=== PATIENT | female | born 1975 | race Hispanic/Latino ===

== ENCOUNTER 2019-07-04 11:54 | Emergency (ER) | payer SELFPAY ==
[2019-07-04 13:01] LABS: #Basophils 0.1 thou/uL (0.0-0.2); #Eosinphils 0.2 thou/uL (0.0-0.7); #Lymphocytes 2.2 thou/uL (1.20-3.40); #Monocytes 0.4 thou/uL (0.11-0.59); %Basophils 0.9 % (0.0-1.0); %Eosinophils 2.2 % (0.0-10.0); %Lymphocytes 27.8 % (21.0-51.0); %Monocytes 4.9 % (0.0-10.0); %Neutrophils 64.1 % (42.0-75.0); Hemoglobin 14.3 g/dL (12.0-16.0); Mean Corpuscular HGB CONC 35.6 g/dL (32.0-36.0); Mean Corpuscular Hemoglobin 31.3 pg (27.0-31.0); Mean Corpuscular Volume 87.8 fL (78.0-98.0); Mean Platelet Volume 7.4 fL (7.4-10.4); Platelet Count 246 thou/uL (130-400); RBC Distribution Width 11.9 % (11.5-14.5); Red Blood Cell (RBC) Count 4.59 mill/uL (4.20-5.40); White Blood Cell (WBC) Count 7.8 thou/uL (4.8-10.8)
[2019-07-04 13:06] LABS: BHCG - Serum Negative (NEGATIVE); Pregs Control Background? CLEAR/WHITE (CLR/WHITE); Pregs Control Bar Appear? YES (CONTROL BAR)
[2019-07-04] MEDS ORDERED: Morphine 4 MG/ML VIAL ONE (13:20)
[2019-07-04] MEDS ORDERED: Ondansetron PF 4 MG/2 ML Vial ONE (13:20)
[2019-07-04 13:25] LABS: ALT (SGPT) 12 U/L (8-55); AST (SGOT) 13 U/L (5-34); Albumin 4.7 g/dL (3.5-5.0); Alkaline Phosphatase 51 U/L (40-150); Anion Gap 12 mmol/L (10-20); BUN (Urea Nitrogen) 12 mg/dL (7.0-18.7); Bilirubin, Total 0.6 mg/dL (0.2-1.2); Calc. Creatinine Clearance 0 mL/min (70-130); Calcium 9.2 mg/dL (7.8-10.44); Carbon Dioxide 24 mmol/L (22-29); Chloride 105 mmol/L (98-107); Estimated GFR-MDRD 89; Globulin 3.2 g/dL (2.4-3.5); Glucose 97 mg/dL (70-105); Lipase 13 U/L (8-78); Potassium 3.3 mmol/L (3.5-5.1); Protein, Total 7.9 g/dL (6.0-8.3); Sodium 138 mmol/L (136-145)
[2019-07-04 15:09] LABS: Bilirubin Negative (Negative); Blood, Urine Negative (Negative); Clarity Clear (Clear); Glucose, Urine (Dipstick) Normal (Negative); Leukocyte Negative Leu/uL (Negative); Nitrite Negative (Negative); Protein, Urine (Dipstick) Negative (Neg-Trace); Urobilinogen Normal mg/dL (Less than 2)
--- NOTE | 2019-07-04 15:15 | ULT ---
Gallbladder ultrasound: Multiple grayscale images of right upper quadrant obtained according to protocol. INDICATION: Pain FINDINGS: Liver: Normal Gallbladder: There are multiple foci of increased echogenicity of the gallbladder, oriented along the gallbladder wall, which is thickened, measuring slightly greater than 4 mm. Melchor's Sign: Negative Common bile duct is normal. Ascites: None IMPRESSION: Gallbladder wall thickening and multiple peripherally oriented foci of increased echogenicity the gal lbladder lumen. This may be on the basis of adenomyomatosis. Superimposed gallbladder polyp formation, measuring up to 7 mm, may also be present. Recommend follow-up with gastroenterology consultation for further evaluation.
== END 2019-07-04 16:10 | disposition home or self-care (01) ==
LOC: ERS 11:54
DX: K82.4 Cholesterolosis of gallbladder (principal)
CPT/HCPCS: 76705; 80053; 81003; 83690; 84703; 85025; 96361; 96374; 96375; J2270; J2405

== ENCOUNTER 2019-11-28 12:57 | Emergency (ER) | payer SELFPAY ==
[2019-11-28 14:18] LABS: #Basophils 0.1 thou/uL (0.0-0.2); #Eosinphils 0.2 thou/uL (0.0-0.7); #Lymphocytes 1.9 thou/uL (1.20-3.40); #Monocytes 0.4 thou/uL (0.11-0.59); #Neutrophils 5.1 thou/uL (1.40-6.50); %Basophils 0.7 % (0.0-1.0); %Eosinophils 2.4 % (0.0-10.0); %Lymphocytes 25.2 % (21.0-51.0); %Monocytes 5.1 % (0.0-10.0); %Neutrophils 66.6 % (42.0-75.0); Hemoglobin 14.1 g/dL (12.0-16.0); Mean Corpuscular Hemoglobin 31.9 pg (27.0-31.0); Mean Corpuscular Volume 88.5 fL (78.0-98.0); Platelet Count 228 thou/uL (130-400); Red Blood Cell (RBC) Count 4.43 mill/uL (4.20-5.40); White Blood Cell (WBC) Count 7.6 thou/uL (4.8-10.8)
[2019-11-28 16:14] LABS: Bacteria/HPF None Seen HPF (None Seen); Bilirubin Negative (Negative); Blood, Urine Negative (Negative); Clarity Clear (Clear); Glucose, Urine (Dipstick) Normal (Negative); Leukocyte Negative Leu/uL (Negative); Nitrite Negative (Negative); Protein, Urine (Dipstick) 30 mg/dL (Neg-Trace); RBC/HPF 0-3 HPF (0-3); Squamous Epithelial 0-3 HPF (0-3); WBC/HPF None Seen HPF (0-3)
== END 2019-11-28 15:57 | disposition left against medical advice (07) ==
LOC: ERS 12:57
DX: Z53.21 Procedure and treatment not carried out due to patient leaving prior to being seen by health care provider (principal)
CPT/HCPCS: 36415; 81003; 81015; 85025

== ENCOUNTER 2019-12-04 12:13 | Emergency (ER) | payer SELFPAY ==
[2019-12-04 13:46] LABS: #Eosinphils 0.2 thou/uL (0.0-0.7); #Lymphocytes 1.9 thou/uL (1.20-3.40); #Monocytes 0.4 thou/uL (0.11-0.59); #Neutrophils 3.9 thou/uL (1.40-6.50); %Basophils 0.6 % (0.0-1.0); %Eosinophils 2.6 % (0.0-10.0); %Lymphocytes 29.7 % (21.0-51.0); %Monocytes 5.6 % (0.0-10.0); %Neutrophils 61.5 % (42.0-75.0); Hemoglobin 13.9 g/dL (12.0-16.0); Mean Corpuscular Hemoglobin 31.4 pg (27.0-31.0); Mean Corpuscular Volume 89.6 fL (78.0-98.0); Mean Platelet Volume 7.6 fL (7.4-10.4); Platelet Count 256 thou/uL (130-400); Red Blood Cell (RBC) Count 4.44 mill/uL (4.20-5.40); White Blood Cell (WBC) Count 6.4 thou/uL (4.8-10.8)
[2019-12-04 14:09] LABS: ALT (SGPT) 11 U/L (8-55); AST (SGOT) 10 U/L (5-34); Albumin 4.2 g/dL (3.5-5.0); Alkaline Phosphatase 46 U/L (40-110); Anion Gap 10 mmol/L (10-20); BUN (Urea Nitrogen) 10 mg/dL (7.0-18.7); Bilirubin, Total 0.5 mg/dL (0.2-1.2); Calc. Creatinine Clearance 0 mL/min (70-130); Calcium 8.8 mg/dL (7.8-10.44); Carbon Dioxide 26 mmol/L (22-29); Chloride 107 mmol/L (98-107); Estimated GFR-MDRD 89; Globulin 3.1 g/dL (2.4-3.5); Glucose 94 mg/dL (70-105); Lipase 16 U/L (8-78); Potassium 3.6 mmol/L (3.5-5.1); Protein, Total 7.3 g/dL (6.0-8.3); Sodium 139 mmol/L (136-145)
--- NOTE | 2019-12-04 14:54 | RAD ---
EXAM: CHEST ONE VIEW HISTORY: Right lower quadrant abdominal pain with diarrhea and vomiting. COMPARISON: None FINDINGS: The cardiac silhouette and pulmonary vasculature is within normal limits. Mild elevation left hemidia phragm. The lungs are clear. The osseous structures are intact. IMPRESSION: No acute cardiopulmonary process.
[2019-12-04] MEDS ORDERED: Pantoprazole 40 MG VIAL ONE (15:04)
[2019-12-04] MEDS ORDERED: Ondansetron PF 4 MG/2 ML Vial ONE (15:04)
[2019-12-04 15:16] LABS: Bacteria/HPF None Seen HPF (None Seen); Bilirubin Negative (Negative); Blood, Urine Negative (Negative); Clarity Clear (Clear); Glucose, Urine (Dipstick) Normal (Negative); Leukocyte 25 Leu/uL (Negative); Nitrite Negative (Negative); Protein, Urine (Dipstick) Negative (Neg-Trace); RBC/HPF 0-3 HPF (0-3); Squamous Epithelial 0-3 HPF (0-3); Urobilinogen Normal mg/dL (Less than 2); WBC/HPF 0-3 HPF (0-3)
--- NOTE | 2019-12-04 15:33 | ULT ---
Exam: Right upper quadrant ultrasound: HISTORY: Abdominal pain, nausea, vomiting COMPARISON: 07/04/2019 FINDINGS: Visualized liver:Somewhat coarse liver echogenicity evidence for fatty change. Gallbladder:Evidence for gallbladder wall thickening with extensive polyps throughout the gallbladder evidence for gallbladder wall polyposis. There is some associated gallbladder wall thickening up to 0.5 cm. Common bile duct:0.7 cm The visualized pancreas and right kidney are unremarkable. No evidence for abscess or abnormal fluid collection in the right upper quadrant. IMPRESSION: Gallbladder wall thickening with very extensive nonmobile polyps throughout the gallbladder. No evidence for mobile shadowing gallstones. Coarse liver echogenicity evidence for fatty change.
== END 2019-12-04 17:50 | disposition home or self-care (01) ==
LOC: ERS 12:13
DX: K82.4 Cholesterolosis of gallbladder (principal)
CPT/HCPCS: 36415; 71045; 76705; 80053; 81003; 81015; 83690; 84484; 85025; 93005; 96361; 96374; 96375; C9113; J2405

== ENCOUNTER 2020-01-26 13:04 | Day surgery (SDC) | payer SELFPAY ==
[~2020-01-26 13:04] MED LIST: Dexamethasone 20 MG/5 ML VIAL ONE; Glycopyrrolate 0.2 MG/ML 5 ML SYRINGE ONE; Iopamidol 370 76% 100 ML VIAL ONE; Ondansetron PF 4 MG/2 ML Vial ONE; PROPOFOL 200 MG/20 ML VIAL ONE; Rocuronium Bromide 10 MG/ML (10ML VIAL) ONE; Succinylcholine Chloride 20 MG/ML 10 ml SYRINGE FS ONE; diphenhydrAMINE 50 MG/ML VIAL ONE
[2020-01-26 13:35] LABS: #Lymphocytes 1.9 thou/uL (1.20-3.40); #Monocytes 0.3 thou/uL (0.11-0.59); #Neutrophils 5.9 thou/uL (1.40-6.50); %Eosinophils 0.4 % (0.0-10.0); %Lymphocytes 23.6 % (21.0-51.0); %Monocytes 3.7 % (0.0-10.0); %Neutrophils 72.2 % (42.0-75.0); Hemoglobin 14.6 g/dL (12.0-16.0); Mean Corpuscular HGB CONC 35.7 g/dL (32.0-36.0); Mean Corpuscular Hemoglobin 31.7 pg (27.0-31.0); Mean Platelet Volume 7.4 fL (7.4-10.4); Platelet Count 267 thou/uL (130-400); RBC Distribution Width 11.7 % (11.5-14.5); Red Blood Cell (RBC) Count 4.59 mill/uL (4.20-5.40); White Blood Cell (WBC) Count 8.2 thou/uL (4.8-10.8)
[2020-01-26] MEDS ORDERED: Morphine 4 MG/ML VIAL ONE ×2 (13:40→19:27)
[2020-01-26] MEDS ORDERED: Ondansetron PF 4 MG/2 ML Vial ONE (13:40)
[2020-01-26 13:48] LABS: BHCG - Serum Negative (NEGATIVE); Pregs Control Background? CLEAR/WHITE (CLR/WHITE); Pregs Control Bar Appear? YES (CONTROL BAR)
[2020-01-26 13:52] LABS: ALT (SGPT) 33 U/L (8-55); AST (SGOT) 16 U/L (5-34); Albumin 4.4 g/dL (3.5-5.0); Alkaline Phosphatase 71 U/L (40-110); Anion Gap 15 mmol/L (10-20); BUN (Urea Nitrogen) 11 mg/dL (7.0-18.7); Bilirubin, Total 0.4 mg/dL (0.2-1.2); Calc. Creatinine Clearance 0 mL/min (70-130); Calcium 8.7 mg/dL (7.8-10.44); Carbon Dioxide 20 mmol/L (22-29); Chloride 105 mmol/L (98-107); Estimated GFR-MDRD Greater than 90; Globulin 3.5 g/dL (2.4-3.5); Glucose 111 mg/dL (70-105); Lipase 12 U/L (8-78); Potassium 3.5 mmol/L (3.5-5.1); Protein, Total 7.9 g/dL (6.0-8.3); Sodium 136 mmol/L (136-145)
[2020-01-26 14:15] LABS: Bilirubin Negative (Negative); Blood, Urine Negative (Negative); Clarity Clear (Clear); Glucose, Urine (Dipstick) Normal (Negative); Leukocyte Negative Leu/uL (Negative); Nitrite Negative (Negative); Protein, Urine (Dipstick) Negative (Neg-Trace); Urobilinogen Normal mg/dL (Less than 2)
--- NOTE | 2020-01-26 14:25 | CT ---
CT ABDOMEN WITH CONTRAST CT PELVIS WITH CONTRAST: DATE: 01/26/2020 HISTORY: 44-year-old female with acute left lower quadrant abdominal pain. Dr. Gunderson discussed the findings suspicious for strangulation of bowel involving ventral hernia by tele phone with HENRY Forde at 2:14 PM 01/26/2020 COMPARISON: None TECHNIQUE: IV injection of iodinated contrast media: administered. Oral contrast media:Not administered FINDINGS: There is a small defect in the ventral abdominal wall within a 4.5 cm diastases between the left and right rectus abdominis muscles. Through this defect, a very short segment of a small bowel loop herniates anteriorly a short distance. This is surrounded by an approximately 2.5 cm fat-containing h ernia sac. There is fat stranding within this hernia sac, consistent with edema. Just deep to that defect, a short segment of that small bowel has abnormally increased mural enhancement. There is no significant small bowel dilation yet. The liver, abdominal aorta, kidneys, pancreas, adre nals, spleen, and appendix, are normal. No signs of colonic diverticulitis. No ascites or pneumoperitoneum. There is a 1.5 cm cystic lesion i n the right adnexa with mural enhancement. There are bilateral L5 pars interarticularis defects. Slight grade 1 anterolisthesis of L5 on S1. Hig h-grade bilateral neural foraminal stenosis at L5-S1. Moderate disc space narrowing at L5-S1. At the lateral aspect of the base of the right lower lobe, there is an approximately 0.9 x 0.5 x 0.8 cm noncalcified pulmonary nodule with ill-defined margins. IMPRESSION: 1) small ventral hernia with suspected early small bowel strangulation. 2) nonspecific right lower lobe pulmonary nodule. It is uncertain whether this is infectious/inflamma tory or neoplastic. Follow-up chest CT is recommended in several days to a few weeks. 3) bilateral L5 spondylolysis causing mild grade 1 spondylolisthesis, high-grade bilateral neural for aminal stenosis, and degenerative disc disease, at L5-S1.
--- NOTE | 2020-01-26 15:40 | HP ---
HISTORY OF PRESENT ILLNESS: Ms. Scott is a 44-year-old woman, Malagasy-speaking only, who presented to emergency department today with insidious onset periumbilical sharp abdominal pain, which started approximately 0930 hours. Pain is described as sharp and occasionally crampy, rated at 10/10, associated with one bout of nonbilious emesis. She experienced similar pain pattern about a month ago, which resolved spontaneously. She denies any abdominal bulge. She denies any change in her bowel habits. Denies any fevers or chills. PAST MEDICAL HISTORY: She denies any previous medical problems. PAST SURGICAL HISTORY: Pertinent for bilateral tubal ligation 10 years ago. SOCIAL HISTORY: She denies any cigarette smoking, ethanol, or illicit drug abuse. FAMILY HISTORY: Denies any family history of diabetes mellitus, hypertension, heart disease, or cancer. PREHOSPITALIZATION MEDICATIONS: None. ALLERGIES: THE PATIENT DENIES ANY KNOWN DRUG ALLERGIES. REVIEW OF SYSTEMS: 10-point review of systems is essentially unremarkable except for stated in past medical history and chief complaint. PHYSICAL EXAMINATION: GENERAL: This reveals a 44-year-old normally developed woman, who is otherwise coherent, interactive, and appears stated age. The patient is alert and oriented x3, appears to be in moderate distress secondary to abdominal pain. Pain is currently rated 7/10 after receiving intravenous analgesics. HEENT: Reveals normocephalic and atraumatic. The pupils are equal, round, reactive to light and accommodation. Extraocular muscles are intact bilaterally. No scleral icterus present. HEART: Reveals regular rate and rhythm. No murmurs or gallops auscultated. LUNGS: Clear to auscultation bilaterally. Her breathing is regular and nonlabored. ABDOMEN: Soft, nondistended, with severe periumbilical tenderness to palpation with no gross rebound tenderness present. There is minimum bulge surrounding the umbilicus. No palpable defects nevertheless. Liver and spleen are nonpalpable below costal margin. EXTREMITIES: Reveal 2+ radial and pedal pulses bilaterally. No ankle edema is present. NEUROLOGIC: Reveals no focal deficits present. LABORATORY FINDINGS: Today include a CBC with 8200 white blood cells, hemoglobin and hematocrit 14.6 and 40.8 respectively, platelet count is 267,000. Metabolic profile; sodium 136, potassium 3.5, chloride is 105, bicarb is 20, BUN 11, creatinine 0.68, glucose 111, total bilirubin 0.4, AST and ALT 16 and 33 respectively, alkaline phosphatase is 71. Serum lipase is 12. Serum test is negative. I have personally reviewed CT scan of the abdomen and pelvis, which is remarkable for an incarcerated small ventral hernia with early small bowel strangulation. There is a fat stranding of the mesentery of the involved bowel. No free fluid or pneumoperitoneum is present. IMPRESSION: Acute incarcerated ventral hernia with possible early small-bowel strangulation. PLAN: Laparoscopic ventral hernia repair, possible open. The above findings and plan have been discussed with the patient through a skin tanner. We have informed the patient of the risks and benefits of the proposed surgery to include, but not limited to bleeding, infection, injury to bowel or surrounding structures. The patient indicates understanding of information given. I have answered her questions. The patient has granted consent for this admission and surgical intervention. Job ID: [id number]
[2020-01-26] MEDS ORDERED: Fentanyl 250 MCG/5 ML VIAL ONE (16:23)
[2020-01-26] MEDS ORDERED: Bupivacaine 0.25% HCL 30 ML VIAL ONE (16:28)
[2020-01-26] MEDS ORDERED: Midazolam HCl 2 mg/2 ml Vial ONE (16:30)
[2020-01-26] MEDS ORDERED: Fentanyl 100 MCG/2 ML VIAL ONE ×2 (19:02→19:39)
[2020-01-26] MEDS ORDERED: HYDROcodone/Acetaminophen 5/325 mg Tablet ONE ×2 (19:58)
--- NOTE | 2020-01-27 00:19 | OP ---
DATE OF PROCEDURE: 01/26/2020 PREOPERATIVE DIAGNOSIS: Incarcerated ventral incisional hernia. POSTOPERATIVE DIAGNOSIS: Incarcerated ventral incisional hernia. PROCEDURE PERFORMED: Laparoscopic repair of ventral incisional hernia with mesh (using 6.4 cm Ventralex mesh patch). ANESTHESIA: General endotracheal. INDICATIONS: Patient is a 44-year-old female. She presented to the operating room with severe periumbilical abdominal pain. She was nauseated but did not vomit. CT scan was obtained revealing a relatively small periumbilical ventral hernia. There appeared to be a loop of small bowel incarcerated within this that was consistent with her pain. She is taken to the operating at this time for repair. DESCRIPTION OF OPERATION: Informed consent was obtained. Patient was taken to the operating room, where general endotracheal anesthesia obtained. Patient in supine position. Abdomen was prepped with ChloraPrep and draped in a sterile fashion. Local anesthetic was infiltrated. A 5 mm right lateral mid abdominal incision was created through which a Veress needle was passed the peritoneal cavity. Pneumoperitoneum established. She has carbon dioxide up to pressure of 15 mmHg. A 5 mm trocar port was passed through the same incision. Laparoscopic camera was passed this port. Under direct vision, 2 additional ports were placed including a 5 mm right lower quadrant port and a 12 mm right upper quadrant port. Attention was turned to the anterior abdominal wall. The segment of bowel that had been adhered had reduced spontaneously, probably during induction of the anesthesia. I inspected the small bowel and could identify no area with obvious ischemic change. Attention was returned to the hernia. There was a relatively small umbilical hernia. This was surrounded by preperitoneal fatty tissue. The preperitoneal fat was dissected from this area circumferentially revealing an obvious fascial defect at the umbilicus and it was about a centimeter in diameter. There were a couple of small hernias adjacent to this, each of which was only couple of millimeters in size. After the abdominal wall musculature had been exposed by removing all preperitoneal fat, attention was returned to the repair. The fascial defect was closed using three interrupted sutures of 0 Ethibond placed with a GraNee needle. It was secured with the pressure decreased with complete closure of the defect. A 6.4 cm Ventralex mesh patch was obtained. The tails were trimmed away from this. I placed four quadrant sutures of 0 Ethibond and passed the mesh into the abdominal cavity securing the patch within orientation such that the enteric coating was visible and the mesh was against the abdominal wall, each of the four sutures was withdrawn through the abdominal wall. These were secured, thus tacking the mesh to the abdominal wall with full-thickness fascial sutures. I then used the secure strap to secure the remainder of the mesh to the abdominal wall circumferentially and within the center as well. The mesh was well approximated and had excellent coverage over the defect. The fascial defect the 12 mm port site was closed with 0 Vicryl suture using a GraNee needle. All ports and instruments were removed under direct vision. Pneumoperitoneum was carefully evacuated. A 0.25% Marcaine with epinephrine infiltrated at the port site. Skin edges approximated with 4-0 Monocryl subcuticular suture. Dermabond was placed externally. Dermabond was also placed over the needle puncture sites from placement of the mesh anchoring sutures. There were no complications. Patient tolerated the procedure well and was taken to recovery room in stable condition. Job ID: [id number]
--- NOTE | 2020-01-27 08:51 | HP ---
ADDENDUM: CHIEF COMPLAINT: Periumbilical abdominal pain. HISTORY OF PRESENT ILLNESS: A full history and physical examination has already been dictated on this patient by Dr. Jcarlos Hernandez. Secondary to operating room issues, I am assuming this patient's care from him. I have reviewed his history and physical examination, reviewed her radiologic and laboratory studies, and performed a full physical examination. I discussed (in Congolese) her current problem as well as the planned operation as well as potential risks. She understands and agrees to proceed with surgery. I agree that her apparent incarcerated ventral hernia should be repaired urgently. Job ID: [id number]
== END 2020-01-26 20:25 | disposition home or self-care (01) ==
LOC: ERS 13:04 → SDC 16:11
PROVIDERS: ATTEND Surgery
PROC: 0WUF4JZ Supplement Abdominal Wall with Synthetic Substitute, Percutaneous Endoscopic Approach (ICD-10-PCS; principal; 2020-01-26)
DX: K43.0 Incisional hernia with obstruction, without gangrene (principal); K42.9 Umbilical hernia without obstruction or gangrene
CPT/HCPCS: 36415; 74177; 80053; 81003; 83605; 83690; 84703; 85025; J0690; J1100; J1200; J2250; J2270; J2405; J2704; J3010; S0020

== ENCOUNTER 2021-08-21 14:37 | Inpatient (IN) | payer SELFPAY ==
[~2021-08-21 14:37] MED LIST changes: -Dexamethasone 20 MG/5 ML VIAL ONE; -Glycopyrrolate 0.2 MG/ML 5 ML SYRINGE ONE; -Iopamidol 370 76% 100 ML VIAL ONE; +Iopamidol-370 76% 500 ML 1 ML ONE; -Ondansetron PF 4 MG/2 ML Vial ONE; -PROPOFOL 200 MG/20 ML VIAL ONE; -Rocuronium Bromide 10 MG/ML (10ML VIAL) ONE; -Succinylcholine Chloride 20 MG/ML 10 ml SYRINGE FS ONE; -diphenhydrAMINE 50 MG/ML VIAL ONE
[2021-08-21] MEDS ORDERED: Morphine 4 MG/ML VIAL ONE ×2 (15:05→20:55)
[2021-08-21] MEDS ORDERED: Famotidine/PF 20 mg/2ml Vial ONE (15:06)
[2021-08-21] MEDS ORDERED: Ondansetron PF 4 MG/2 ML Vial ONE (15:06)
[2021-08-21 15:08] LABS: #Eosinphils 0.1 thou/uL (0.0-0.7); #Lymphocytes 3.5 thou/uL (1.20-3.40); #Monocytes 0.4 thou/uL (0.11-0.59); #Neutrophils 4.3 thou/uL (1.40-6.50); %Basophils 0.3 % (0.0-1.0); %Eosinophils 1.2 % (0.0-10.0); %Lymphocytes 41.6 % (21.0-51.0); %Monocytes 5.3 % (0.0-10.0); %Neutrophils 51.6 % (42.0-75.0); Hemoglobin 14.3 g/dL (12.0-16.0); Mean Corpuscular HGB CONC 36.1 g/dL (32.0-36.0); Mean Corpuscular Hemoglobin 31.9 pg (27.0-31.0); Mean Corpuscular Volume 88.4 fL (78.0-98.0); Mean Platelet Volume 7.6 fL (7.4-10.4); Platelet Count 251 thou/uL (130-400); RBC Distribution Width 11.7 % (11.5-14.5); Red Blood Cell (RBC) Count 4.49 mill/uL (4.20-5.40); White Blood Cell (WBC) Count 8.4 thou/uL (4.8-10.8)
[2021-08-21 15:31] LABS: ALT (SGPT) 21 U/L (8-55); AST (SGOT) 32 U/L (5-34); Albumin 4.2 g/dL (3.5-5.0); Alkaline Phosphatase 58 U/L (40-110); Anion Gap 12 mmol/L (10-20); BUN (Urea Nitrogen) 15 mg/dL (7.0-18.7); Bilirubin, Total 0.7 mg/dL (0.2-1.2); Calc. Creatinine Clearance 0 mL/min (70-130); Calcium 9.6 mg/dL (7.8-10.44); Carbon Dioxide 24 mmol/L (22-29); Chloride 105 mmol/L (98-107); Globulin 2.9 g/dL (2.4-3.5); Glucose 137 mg/dL (70-105); Lipase 22 U/L (8-78); Magnesium 1.9 mg/dL (1.6-2.6); Potassium 3.4 mmol/L (3.5-5.1); Protein, Total 7.1 g/dL (6.0-8.3); Sodium 138 mmol/L (136-145)
[2021-08-21 18:26] LABS: Bilirubin Negative (Negative); Blood, Urine Negative (Negative); Glucose, Urine (Dipstick) Normal (Negative); Ketone, Urine Trace mg/dL (Negative); Leukocyte Negative Leu/uL (Negative); Nitrite Negative (Negative); Protein, Urine (Dipstick) Negative (Neg-Trace)
[2021-08-21 18:27] LABS: Clarity Hazy (Clear); Pregnancy Test - Urine (BHCG) Negative (Negative); Pregu Control Bar Appear? YES (CONTROL BAR)
[2021-08-21 18:28] LABS: Pregu Control Background? CLEAR/WHITE (CLR/WHITE)
[2021-08-21] MEDS ORDERED: Acetaminophen 325 MG TAB PO PRN (21:54)
[2021-08-21] MEDS ORDERED: Ondansetron PF 4 MG/2 ML Vial IVP PRN (21:54)
[2021-08-21] MEDS ORDERED: Sodium Chloride 0.9% 1,000 ML IV SCH (22:00)
[2021-08-21] MEDS ORDERED: Morphine 4 MG/ML VIAL SLOW IVP PRN (22:12)
[2021-08-21 22:50] VITALS: BMI 33.7
[2021-08-21] MEDS: Sodium Chloride 0.9% 1,000 ML IV SCH (23:11)
[2021-08-22 05:27] LABS: #Eosinphils 0.1 thou/uL (0.0-0.7); #Lymphocytes 1.6 thou/uL (1.20-3.40); #Monocytes 0.5 thou/uL (0.11-0.59); %Basophils 0.2 % (0.0-1.0); %Eosinophils 1.1 % (0.0-10.0); %Lymphocytes 19.4 % (21.0-51.0); %Monocytes 6.5 % (0.0-10.0); %Neutrophils 72.8 % (42.0-75.0); Hemoglobin 13.1 g/dL (12.0-16.0); Mean Corpuscular HGB CONC 35.9 g/dL (32.0-36.0); Mean Corpuscular Hemoglobin 32.3 pg (27.0-31.0); Mean Corpuscular Volume 89.8 fL (78.0-98.0); Mean Platelet Volume 7.9 fL (7.4-10.4); Platelet Count 218 thou/uL (130-400); RBC Distribution Width 11.8 % (11.5-14.5); Red Blood Cell (RBC) Count 4.06 mill/uL (4.20-5.40); White Blood Cell (WBC) Count 8.3 thou/uL (4.8-10.8)
[2021-08-22 06:05] LABS: Anion Gap 10 mmol/L (10-20); BUN (Urea Nitrogen) 10 mg/dL (7.0-18.7); Calc. Creatinine Clearance 121 mL/min (70-130); Calcium 8.1 mg/dL (7.8-10.44); Carbon Dioxide 24 mmol/L (22-29); Chloride 106 mmol/L (98-107); Glucose 133 mg/dL (70-105); Potassium 3.7 mmol/L (3.5-5.1); Sodium 136 mmol/L (136-145)
[2021-08-22] MEDS: FLU VACC QS2021-22(6MOS UP)/PF 60 MCG/0.5 ML SYRINGE IM ONE ×2 (08:13→08:19)
[2021-08-22 08:24] LABS: ALT (SGPT) 66 U/L (8-55); AST (SGOT) 58 U/L (5-34); Albumin 3.6 g/dL (3.5-5.0); Alkaline Phosphatase 70 U/L (40-110); Bilirubin, Direct 0.2 mg/dL (0.1-0.3); Bilirubin, Total 0.5 mg/dL (0.2-1.2); Lipase 16 U/L (8-78); Protein, Total 6.1 g/dL (6.0-8.3)
[2021-08-22] MEDS ORDERED: Senokot S 8.6-50 MG TAB PO PRN (12:12)
[2021-08-22] MEDS ORDERED: Calcium Carbonate 500 MG ChewTAB PO PRN (12:12)
[2021-08-22] MEDS: Sodium Chloride 0.9% 1,000 ML IV SCH (12:12)
[2021-08-22 12:28] LABS: SARS-CoV-2 PCR by NAA Not Detected (NotDetected)
[2021-08-22] MEDS ORDERED: Pantoprazole 40 MG VIAL IVP SCH (13:15)
[2021-08-22] MEDS ORDERED: Famotidine 20 MG TAB PO SCH (21:00)
[2021-08-23 06:47] LABS: #Eosinphils 0.2 thou/uL (0.0-0.7); #Lymphocytes 1.8 thou/uL (1.20-3.40); #Monocytes 0.3 thou/uL (0.11-0.59); %Basophils 0.2 % (0.0-1.0); %Eosinophils 3.2 % (0.0-10.0); %Lymphocytes 33.5 % (21.0-51.0); %Monocytes 6.3 % (0.0-10.0); %Neutrophils 56.7 % (42.0-75.0); Hemoglobin 13.2 g/dL (12.0-16.0); Mean Corpuscular HGB CONC 35.6 g/dL (32.0-36.0); Mean Corpuscular Volume 89.9 fL (78.0-98.0); Mean Platelet Volume 7.6 fL (7.4-10.4); Platelet Count 209 thou/uL (130-400); RBC Distribution Width 11.9 % (11.5-14.5); Red Blood Cell (RBC) Count 4.13 mill/uL (4.20-5.40); White Blood Cell (WBC) Count 5.3 thou/uL (4.8-10.8)
[2021-08-23 07:13] LABS: ALT (SGPT) 108 U/L (8-55); AST (SGOT) 69 U/L (5-34); Albumin 3.6 g/dL (3.5-5.0); Alkaline Phosphatase 86 U/L (40-110); Anion Gap 11 mmol/L (10-20); BUN (Urea Nitrogen) 6 mg/dL (7.0-18.7); Bilirubin, Total 0.5 mg/dL (0.2-1.2); Calc. Creatinine Clearance 133 mL/min (70-130); Calcium 8.1 mg/dL (7.8-10.44); Carbon Dioxide 22 mmol/L (22-29); Chloride 107 mmol/L (98-107); Globulin 2.6 g/dL (2.4-3.5); Glucose 116 mg/dL (70-105); Lipase 20 U/L (8-78); Potassium 3.7 mmol/L (3.5-5.1); Protein, Total 6.2 g/dL (6.0-8.3); Sodium 136 mmol/L (136-145)
[2021-08-23 07:22] VITALS: TEMP 98.6
[2021-08-23] MEDS ORDERED: Pantoprazole 40 MG VIAL IVP SCH (09:00)
[2021-08-23] MEDS: Sodium Chloride 0.9% 1,000 ML IV SCH (09:03)
[2021-08-23 11:57] VITALS: BP 110/73
== END 2021-08-23 13:20 | disposition home or self-care (01) | DRG 384 ==
LOC: ERS 14:37 → T4-B 20:34 → OBSVTOIN 08-22 13:20
PROVIDERS: ADMIT Student in an Organized Health Care Education/Training Program; ATTEND Internal Medicine
DX: K27.9 Peptic ulcer, site unspecified, unspecified as acute or chronic, without hemorrhage or perforation (principal); Z20.822 Contact with and (suspected) exposure to COVID-19; Z23 Encounter for immunization; K82.4 Cholesterolosis of gallbladder; R79.89 Other specified abnormal findings of blood chemistry; E87.6 Hypokalemia; E86.0 Dehydration; E66.9 Obesity, unspecified; Z68.33 Body mass index [BMI] 33.0-33.9, adult; Z98.51 Tubal ligation status
CPT/HCPCS: 36415; 71045; 74177; 76705; 78227; 80048; 80053; 80076; 81003; 81025; 83690; 83735; 84484; 85025; 90471; 90686; 93005; 96376; A9537; C9113; G0008; G0378; J1956; J2270; J2405; J7050; Q9967; S0028; U0003; U0005

== ENCOUNTER 2023-03-26 20:08 | Observation (INO) | payer BC ==
[2023-03-26 20:41] LABS: Bilirubin Negative (Negative); Blood, Urine Trace (Negative); CAUTI Indications for Culture Pelvic or flank pain; Clarity Turbid (Clear); Glucose, Urine (Dipstick) Normal (Negative); Ketone, Urine Negative (Negative); Leukocyte 250 Leu/uL (Negative); Nitrite Negative (Negative); Protein, Urine (Dipstick) Negative (Neg-Trace); RBC/HPF 0-3 HPF (0-3); Specific Gravity, Urine 1.015 (1.002-1.036); Urobilinogen Normal mg/dL (Less than 2); WBC/HPF 0-3 HPF (0-3)
[2023-03-26 20:42] LABS: Bacteria/HPF 1+ HPF (None Seen)
[2023-03-26 20:43] LABS: Urine Culture Reflex No No
[2023-03-26 20:49] LABS: #Eosinphils 0.1 thou/uL (0.0-0.7); #Monocytes 0.6 thou/uL (0.11-0.59); #Neutrophils 5.9 thou/uL (1.40-6.50); %Basophils 0.5 % (0.0-1.0); %Eosinophils 1.1 % (0.0-10.0); %Lymphocytes 23.9 % (21.0-51.0); %Monocytes 7.1 % (0.0-10.0); %Neutrophils 67.1 % (42.0-75.0); Hemoglobin 13.5 g/dL (12.0-16.0); Mean Corpuscular HGB CONC 35.2 g/dL (32.0-36.0); Mean Corpuscular Hemoglobin 31.2 pg (27.0-31.0); Mean Corpuscular Volume 88.7 fl (78.0-98.0); Mean Platelet Volume 9.8 fL (7.4-10.4); Platelet Count 235 10x3/uL (130-400); RBC Distribution Width 12.9 % (11.5-14.5); Red Blood Cell (RBC) Count 4.33 mill/uL (4.20-5.40); White Blood Cell (WBC) Count 8.8 10x3/uL (4.8-10.8)
[2023-03-26 21:11] LABS: ALT (SGPT) 18 U/L (8-55); AST (SGOT) 14 U/L (5-34); Albumin 4.1 g/dL (3.5-5.0); Alkaline Phosphatase 50 U/L (40-110); Anion Gap 11 mmol/L (10-20); BUN (Urea Nitrogen) 16 mg/dL (7.0-18.7); Bilirubin, Total 0.3 mg/dL (0.2-1.2); Calc. Creatinine Clearance 0 mL/min (70-130); Calcium 9.4 mg/dL (7.8-10.44); Carbon Dioxide 22 mmol/L (22-29); Chloride 108 mmol/L (98-107); Estimated GFR 73; Globulin 2.5 g/dL (2.4-3.5); Glucose 171 mg/dL (70-105); Lipase 20 U/L (8-78); Potassium 3.8 mmol/L (3.5-5.1); Protein, Total 6.6 g/dL (6.0-8.3); Sodium 137 mmol/L (136-145)
[2023-03-26] MEDS ORDERED: Nitroglycerin 2% Ointment 1 INCH/1 GM Packet ONE (22:21)
[2023-03-26] MEDS ORDERED: Acetaminophen 325 MG TAB PO PRN (23:27)
[2023-03-26] MEDS ORDERED: Ondansetron PF 4 MG/2 ML Vial IVP PRN (23:27)
[2023-03-26] MEDS ORDERED: Nitroglycerin 0.4 MG TAB (25 Tab Bottle) SL PRN (23:27)
[2023-03-27 00:03] LABS: Troponin I Less than 0.010 ng/mL (< 0.028)
[2023-03-27 03:21] LABS: #Eosinphils 0.1 thou/uL (0.0-0.7); #Monocytes 0.5 thou/uL (0.11-0.59); #Neutrophils 4.4 thou/uL (1.40-6.50); %Basophils 0.4 % (0.0-1.0); %Eosinophils 1.8 % (0.0-10.0); %Lymphocytes 29.3 % (21.0-51.0); %Monocytes 6.7 % (0.0-10.0); %Neutrophils 61.7 % (42.0-75.0); Hemoglobin 12.8 g/dL (12.0-16.0); Mean Corpuscular HGB CONC 34.5 g/dL (32.0-36.0); Mean Corpuscular Hemoglobin 31.1 pg (27.0-31.0); Mean Platelet Volume 11.1 fL (7.4-10.4); Platelet Count 159 10x3/uL (130-400); RBC Distribution Width 13.1 % (11.5-14.5); Red Blood Cell (RBC) Count 4.12 mill/uL (4.20-5.40); White Blood Cell (WBC) Count 7.1 10x3/uL (4.8-10.8)
[2023-03-27 03:44] LABS: Anion Gap 13 mmol/L (10-20); BUN (Urea Nitrogen) 15 mg/dL (7.0-18.7); Calc. Creatinine Clearance 0 mL/min (70-130); Calcium 8.6 mg/dL (7.8-10.44); Carbon Dioxide 19 mmol/L (22-29); Cardiac Risk 4.1 (Less than 4.5); Chloride 109 mmol/L (98-107); Cholesterol 168 mg/dl (< 200 Desired); Estimated GFR 98; Glucose 131 mg/dL (70-105); HDL Cholesterol 41 mg/dL (>60 Neg Risk); LDL Cholesterol, Calculated 98 mg/dL; Potassium 3.8 mmol/L (3.5-5.1); Sodium 137 mmol/L (136-145); Triglycerides 144 mg/dL (Less than 150)
[2023-03-27 03:48] LABS: Troponin I Less than 0.010 ng/mL (< 0.028)
[2023-03-27 04:10] LABS: Hemoglobin A1c 5.3 % (4.0-6.0)
[2023-03-27] MEDS ORDERED: Acetaminophen 325 MG TAB ONE (08:57)
[2023-03-27] MEDS ORDERED: Aspirin 81 mg Enteric Coated Tablet PO SCH (10:15)
[2023-03-27] MEDS ORDERED: Aspirin Chewable 81 MG TAB ONE (10:15)
[2023-03-27] MEDS ORDERED: Nitroglycerin 2% Ointment 1 INCH/1 GM Packet ONE (10:15)
[2023-03-27] MEDS: Sodium Chloride 0.9% 1,000 ML IV SCH ×2 (10:29→21:16)
[2023-03-27 12:45] VITALS: BMI 32.8
[2023-03-27] MEDS ORDERED: Nitroglycerin 2% Ointment 1 INCH/1 GM Packet TOP SCH (14:00)
[2023-03-27] MEDS ORDERED: Ibuprofen 100 MG/5 ML UDCUP PO SCH (17:45)
[2023-03-28 05:14] LABS: #Eosinphils 0.2 thou/uL (0.0-0.7); #Monocytes 0.5 thou/uL (0.11-0.59); #Neutrophils 3.4 thou/uL (1.40-6.50); %Basophils 0.5 % (0.0-1.0); %Eosinophils 2.6 % (0.0-10.0); %Lymphocytes 33.5 % (21.0-51.0); %Monocytes 8.7 % (0.0-10.0); %Neutrophils 54.5 % (42.0-75.0); Hemoglobin 13.3 g/dL (12.0-16.0); Mean Corpuscular HGB CONC 34.9 g/dL (32.0-36.0); Mean Corpuscular Hemoglobin 30.7 pg (27.0-31.0); Mean Platelet Volume 10.2 fL (7.4-10.4); Platelet Count 211 10x3/uL (130-400); Red Blood Cell (RBC) Count 4.33 mill/uL (4.20-5.40); White Blood Cell (WBC) Count 6.2 10x3/uL (4.8-10.8)
[2023-03-28 05:37] LABS: Anion Gap 10 mmol/L (10-20); BUN (Urea Nitrogen) 7 mg/dL (7.0-18.7); Calc. Creatinine Clearance 111 mL/min (70-130); Calcium 8.5 mg/dL (7.8-10.44); Carbon Dioxide 21 mmol/L (22-29); Chloride 109 mmol/L (98-107); Estimated GFR 96; Glucose 121 mg/dL (70-105); Potassium 3.8 mmol/L (3.5-5.1); Sodium 136 mmol/L (136-145)
[2023-03-28] MEDS: Sodium Chloride 0.9% 1,000 ML IV SCH (06:34)
[2023-03-28 08:34] VITALS: TEMP 98.4
[2023-03-28] MEDS ORDERED: Regadenoson 0.4 MG/5 ML SYRINGE ONE (08:59)
[2023-03-28] MEDS ORDERED: Aspirin 81 mg Enteric Coated Tablet PO SCH (09:00)
[2023-03-28 13:52] VITALS: BP 120/68
[2023-03-28] MEDS ORDERED: Atorvastatin Calcium 10 MG TAB PO SCH (21:00)
== END 2023-03-28 17:54 | disposition home or self-care (01) ==
LOC: ERS 20:08 → ERHOLD 22:16 → 2SW 03-27 11:29
PROVIDERS: ADMIT Internal Medicine; ATTEND Family Medicine
DX: R07.9 Chest pain, unspecified (principal); I10 Essential (primary) hypertension; I08.8 Other rheumatic multiple valve diseases
CPT/HCPCS: 36415; 71045; 78452; 80048; 80053; 80061; 81001; 83036; 83690; 83880; 84484; 85025; 87086; 93005; 93017; 93306; 96372; A9500; G0378; J1650; J2785; J7050

== ENCOUNTER 2023-10-03 10:35 | Emergency (ER) | payer BC ==
[2023-10-03] MEDS ORDERED: Iopamidol-370 76% 500 ML MDV (1 ML CHARGE) ONE (10:44)
[2023-10-03 11:34] LABS: #Eosinphils 0.1 thou/uL (0.0-0.7); #Monocytes 0.4 thou/uL (0.11-0.59); #Neutrophils 6.4 thou/uL (1.40-6.50); %Basophils 0.2 % (0.0-1.0); %Lymphocytes 19.6 % (21.0-51.0); %Monocytes 4.5 % (0.0-10.0); %Neutrophils 74.4 % (42.0-75.0); Hematocrit 41.3 % (36.0-47.0); Hemoglobin 14.4 g/dL (12.0-16.0); Mean Corpuscular HGB CONC 34.9 g/dL (32.0-36.0); Mean Platelet Volume 9.8 fL (7.4-10.4); Platelet Count 243 10x3/uL (130-400); RBC Distribution Width 13.1 % (11.5-14.5); Red Blood Cell (RBC) Count 4.64 mill/uL (4.20-5.40); White Blood Cell (WBC) Count 8.6 10x3/uL (4.8-10.8)
[2023-10-03 11:47] LABS: INR-International Normal Ratio 1.1; Prothrombin Time 14.5 sec (12.0-14.7)
[2023-10-03 11:58] LABS: ALT (SGPT) 14 U/L (8-55); AST (SGOT) 12 U/L (5-34); Albumin 4.1 g/dL (3.5-5.0); Alkaline Phosphatase 51 U/L (40-110); Anion Gap 11 mmol/L (10-20); BUN (Urea Nitrogen) 9 mg/dL (7.0-18.7); Bilirubin, Total 0.6 mg/dL (0.2-1.2); Calc. Creatinine Clearance 0 mL/min (70-130); Calcium 8.5 mg/dL (7.8-10.44); Carbon Dioxide 23 mmol/L (22-29); Chloride 108 mmol/L (98-107); Estimated GFR 105; Globulin 2.9 g/dL (2.4-3.5); Glucose 109 mg/dL (70-105); Potassium 3.9 mmol/L (3.5-5.1); Sodium 138 mmol/L (136-145)
[2023-10-03] MEDS ORDERED: Acetaminophen 500 MG TAB ONE (12:00)
== END 2023-10-03 13:39 | disposition home or self-care (01) ==
LOC: ERS 10:35
DX: G51.0 Bell's palsy (principal); R20.0 Anesthesia of skin
CPT/HCPCS: 0042T; 36416; 70450; 70496; 70498; 71045; 80053; 85025; 85610; 85730; 93005; 94760; Q9967